=== PATIENT | male | born 1990 | race Caucasian/White ===

== ENCOUNTER 2017-03-04 23:09 | Emergency (ER) | payer OTHER ==
[2017-03-04 23:19] VITALS: RESP 16; TEMP 98.6
[2017-03-04] MEDS ORDERED: IBUPROFEN 200 MG TAB PO ONE (23:24)
[2017-03-04] MEDS ORDERED: IBUPROFEN 600 MG TAB PO ONE (23:31)
[2017-03-05] MEDS ORDERED: OXYCODONE/APAP 5/325MG PREPACK#4 BTL TAKEHOME ONE (01:18)
--- NOTE | 2017-03-05 01:19 | EDPHY ---
H & P Smoking Status: Never smoked Time Seen by Provider: 03/05/17 01:11 HPI/ROS: CHIEF COMPLAINT: Left elbow pain HISTORY OF PRESENT ILLNESS: This is a 26-year-old male presenting to the emergency department complaining of left elbow pain status post fall. Patient states he was riding his bike while his dog was running next to him, patient states his dog crossed his path and patient stopped fell landing outstretched left arm around 1600 today. Patient states as the evening went on he started having more pain in his left elbow. Denies any other injury REVIEW OF SYSTEMS: Constitutional: No fever, no chills. Eyes: No blurred vision Cardiovascular: No chest pain, no palpitations. Respiratory: no shortness of breath. Gastrointestinal: No abdominal pain, no vomiting. Musculoskeletal: No back pain. Left elbow pain Skin: No rashes. Neurological: No headache. (Gisella Newman) Physical Exam: General Appearance: Alert, no distress. Eyes: Pupils equal and round no pallor or injection. Respiratory: There are no retractions, nonlabored respiratory effort Cardiovascular: Regular rate and rhythm. Gastrointestinal: Abdomen is soft and nontender Neurological: No focal deficits ambulatory without gait disturbance Skin: Warm and dry, no rashes. Musculoskeletal: Vertebral cervical spine nontender on palpation full range of motion Extremities: Left elbow swelling, pain with range of motion. No obvious deformity no abrasion no lacerations Psychiatric: Patient is oriented X 3, there is no agitation. (Gisella Newman) Constitutional: Initial Vital Signs Temperature (C) 37.0 C 03/04/17 23:16 Heart Rate 95 03/04/17 23:16 Respiratory Rate 16 03/04/17 23:16 Blood Pressure 132/88 H 03/04/17 23:16 O2 Sat (%) 97 03/04/17 23:16 O2 Delivery Mode Room Air Allergies/Adverse Reactions: No Known Allergies Allergy (Unverified 03/04/17 23:16) Home Medications: Medication Instructions Recorded NK [No Known Home Meds] 03/04/17 Medical Decision Making - Diagnostics Imaging Results: Imaging Impressions Elbow X-Ray 03/04/17 23:19 Impression: Elbow effusion. Suspected occult radial head fracture. ED Course/Re-evaluation: Discussed ED plan of care: X-ray of left elbow shows joint effusion could not r /o occult fracture 1320: Discussed x-ray results with patient, posterior long-arm splint placed with sling. Call Orthopedics this week for follow-up for further evaluation. Discharge home---> stable, discussed discharge instructions with patient (Gisella Newman) Differential Diagnosis: Other differential diagnosis considered but not limited to elbow dislocation, shoulder dislocation and distal ulna/ radial fracture (Gisella Newman) Other Provider: PHYSICIAN DOCUMENTATION: The patient was evaluated and managed by the Physician Radio Sportscaster. My co- signature indicates that I have reviewed this chart and I agree with the findings and plan of care as documented. I am the secondary supervising physician. (Zaira Kimble) - Data Points Medications Given: Discontinued Medications Ibuprofen (Motrin) 600 mg PO EDNOW ONE Stop: 03/04/17 23:32 Last Admin: 03/04/17 23:35 Dose: 600 mg Oxycodone/Acetaminophen (Percocet 5/325mg Prepack#4) 1 btl TAKEHOME EDNOW ONE Stop: 03/05/17 01:19 Last Admin: 03/05/17 01:30 Dose: 1 btl Departure - Departure Disposition: Home, Routine, Self-Care Clinical Impression: Occult fracture of elbow Qualifiers: Encounter type: initial encounter Fracture type: closed Laterality: left Qualified Code(s): S42.402A - Unspecified fracture of lower end of left humerus , initial encounter for closed fracture Condition: Good Instructions: Oxycodone/Acetaminophen (By mouth), Swollen Joint (ED) Additional Instructions: Discussed discharge instructions 1. wear sling and Leave splint on elbow until further evaluation with Orthopedics 2. Call Orthopedics on Sunday 3. Ibuprofen 600 mg every 6-8 hours as needed for pain 4. Ice 15 minutes several times a day as needed for swelling Referrals: NONE *PRIMARY CARE P,. [Primary Care Provider] - As per Instructions Rob Ba MD [Medical Doctor] - As per Instructions
[2017-03-05 01:47] VITALS: BP 126/78; PULSE 74; O2SAT 94
== END 2017-03-05 01:47 | disposition home or self-care (01) ==
DX: S59.902A Unspecified injury of left elbow, initial encounter (principal); V18.4XXA Pedal cycle driver injured in noncollision transport accident in traffic accident, initial encounter; Y92.410 Unspecified street and highway as the place of occurrence of the external cause; Y99.8 Other external cause status; Y93.55 Activity, bike riding
CPT/HCPCS: A4565